=== PATIENT | female | born 1940 | race Two or more races ===

== ENCOUNTER 2022-07-10 14:18 | Inpatient (IN) | payer OTHER, MEDICAID ==
[~2022-07-10] VITALS: Ht 162.6 cm; Wt 87.1 kg
[2022-07-10 14:20] VITALS: BP_SYST 81
[2022-07-10 15:01] LABS: BASOPHILS % (AUTO) 0.7 % (0.0-2.0); EOSINOPHILS # (AUTO) 0.2 K/uL (0.0-0.4); EOSINOPHILS % (AUTO) 2.6 % (0.0-4.0); HEMATOCRIT 33.9 % (36-48); HEMOGLOBIN 11.1 g/dL (12.0-16.0); LYMPHOCYTES # (AUTO) 1.2 K/uL (1.0-5.5); LYMPHOCYTES % (AUTO) 19.1 % (20.5-51.5); MEAN CORPUSCULAR HEMOGLOBIN 32 pg (27-31); MEAN CORPUSCULAR HGB CONC 33 % (32-36); MEAN CORPUSCULAR VOLUME 99 fL (79.0-98.0); MONOCYTES # (AUTO) 0.6 K/uL (0.0-1.0); MONOCYTES % (AUTO) 9.6 % (1.7-9.3); NEUTROPHILS # (AUTO) 4.4 K/uL (1.8-7.7); PLATELET COUNT (AUTO) 183 K/uL (130-430); RED BLOOD CELL COUNT(AUTO) 3.43 MIL/uL (4.2-6.2); RED CELL DISTRIBUTION WIDTH 16.7 % (9.0-15.0); WHITE BLOOD COUNT (AUTO) 6.4 K/uL (4.8-10.8)
[2022-07-10 15:53] LABS: BILIRUBIN,URINE NEGATIVE (NEGATIVE); BLOOD, URINE 2+ (NEGATIVE); CLARITY/URINE CLOUDY (CLEAR); COLOR,URINE YELLOW (YELLOW); GLUCOSE,URINE NEGATIVE (NEGATIVE); KETONES,URINE TRACE (NEGATIVE); NITRITE, URINE NEGATIVE (NEGATIVE); PROTEIN URINE 2+ (NEGATIVE); UROBILINOGEN,URINE 0.2 (0.2-1.0)
[2022-07-10 16:00] LABS: LEUKOCYTE ESTERASE ,URINE 3+ (NEGATIVE)
[2022-07-10 16:02] LABS: BACTERIA,URINE MODERATE /HPF (None Seen); WBC,URINE >100 /HPF (0-3)
[2022-07-10 16:03] LABS: MUCUS,URINE None Seen /LPF (None Seen)
[2022-07-10] MEDS ORDERED: SULFAMETHOXAZOLE/TRIMETHOPR DS 1 TABLET PO ONE (16:15)
[2022-07-10 16:16] LABS: ANION GAP 7 (5-15); CALCIUM 8.5 mg/dL (8.4-11.0); CHLORIDE 97 mmol/L (98-107); CREATININE 4.86 mg/dL (0.55-1.30); GLUCOSE 73 mg/dL (70-99); UREA NITROGEN, BLOOD 35 mg/dL (8-21)
[2022-07-10 16:22] LABS: ALANINE AMINOTRANSFERASE 5 U/L (12-78); ALBUMIN 2.6 g/dL (3.4-4.8); ASPARTATE AMINOTRANSFERASE 13 U/L (10-37); PHOSPHORUS 3.1 mg/dL (2.7-4.5); TOTAL BILIRUBIN 0.4 mg/dL (0.0-1.0)
[2022-07-10] MEDS ORDERED: PIPERACILLIN/TAZOBACTAM 2.25 GM VIAL IV ONE (17:41)
[2022-07-10] MEDS ORDERED: NS 250 ML IV ONE (17:45)
[2022-07-10] MEDS ORDERED: DEXTROSE 50% JECT 50 ML DISP.SYRIN IVP ONE (17:45)
[2022-07-10] MEDS ORDERED: PIPERACILLIN/TAZOBACTAM 2.25 GM in NS 50 ML IV ONE (17:45)
[2022-07-10] MEDS ORDERED: ZOLPIDEM TARTRATE 5 MG TABLET PO PRN (18:15)
[2022-07-10] MEDS ORDERED: NALOXONE HCL 0.4 MG/ML AMP (NARCAN) IVP PRN ×2 (18:15)
[2022-07-10] MEDS ORDERED: POTASSIUM CHLORIDE 20 MEQ TAB.PRT.SR PO PRN (18:15)
[2022-07-10] MEDS ORDERED: MAGNESIUM SULFATE 50 ML IV PRN (18:15)
[2022-07-10] MEDS ORDERED: LORazepam 2 MG/ML VIAL IVP PRN (18:15)
[2022-07-10] MEDS ORDERED: ACETAMINOPHEN 325 MG TABLET PO PRN ×2 (18:15→18:30)
[2022-07-10] MEDS ORDERED: MORPHINE 2 MG/ML INJ. SYRINGE IVP PRN ×2 (18:15)
[2022-07-10] MEDS ORDERED: ONDANSETRON HCL 4 MG/2 ML VIAL IVP PRN (18:15)
[2022-07-10] MEDS ORDERED: DOCUSATE SODIUM 100 MG CAPSULE PO PRN (18:15)
[2022-07-10] MEDS ORDERED: MUPIROCIN 2% TOPICAL OINTMENT 22 GM NS PRN (18:15)
[2022-07-10] MEDS ORDERED: cefTRIAXone 1 GM IVPB PREMIX 50 ML IV ONE (21:08)
[2022-07-10 21:38] VITALS: BP_SYST 114
[2022-07-10] MEDS: cefTRIAXone 1 GM IVPB PREMIX 50 ML IV SCH (21:45)
[2022-07-10] MEDS: HEPARIN SODIUM,PORCINE 5,000 UNITS/ML VIAL SUBCUT SCH (21:55)
[2022-07-11 07:17] LABS: BASOPHILS % (AUTO) 0.5 % (0.0-2.0); EOSINOPHILS # (AUTO) 0.2 K/uL (0.0-0.4); EOSINOPHILS % (AUTO) 3.4 % (0.0-4.0); HEMATOCRIT 35.9 % (36-48); LYMPHOCYTES # (AUTO) 1.1 K/uL (1.0-5.5); LYMPHOCYTES % (AUTO) 18.1 % (20.5-51.5); MEAN CORPUSCULAR HEMOGLOBIN 33 pg (27-31); MEAN CORPUSCULAR HGB CONC 33 % (32-36); MEAN CORPUSCULAR VOLUME 99 fL (79.0-98.0); MONOCYTES # (AUTO) 0.5 K/uL (0.0-1.0); MONOCYTES % (AUTO) 8.9 % (1.7-9.3); NEUTROPHILS # (AUTO) 4.1 K/uL (1.8-7.7); NEUTROPHILS % (AUTO) 69.1 % (40.0-70.0); PLATELET COUNT (AUTO) 169 K/uL (130-430); RED BLOOD CELL COUNT(AUTO) 3.64 MIL/uL (4.2-6.2); RED CELL DISTRIBUTION WIDTH 16.7 % (9.0-15.0)
[2022-07-11 08:00] VITALS: BP_SYST 111
[2022-07-11 08:01] LABS: ANION GAP 8 (5-15); CALCIUM 8.3 mg/dL (8.4-11.0); CHLORIDE 95 mmol/L (98-107); CREATININE 5.39 mg/dL (0.55-1.30); GLUCOSE 121 mg/dL (70-99); UREA NITROGEN, BLOOD 40 mg/dL (8-21)
[2022-07-11] MEDS ORDERED: cefTRIAXone 1 GM in D5W 50 ML IV SCH (08:15)
[2022-07-11] MEDS ORDERED: ASPIRIN 81 MG TAB.CHEW PO ONE (10:00)
[2022-07-11] MEDS ORDERED: ATORVASTATIN 10 MG TABLET PO ONE (10:00)
[2022-07-11] MEDS ORDERED: CARVEDILOL 6.25 MG TABLET (COREG) PO ONE (10:00)
[2022-07-11] MEDS: HEPARIN SODIUM,PORCINE 5,000 UNITS/ML VIAL SUBCUT SCH ×2 (12:22→21:00)
[2022-07-11 14:48] VITALS: BP_SYST 142
[2022-07-11 17:41] VITALS: BP_SYST 105
[2022-07-11] MEDS ORDERED: PRAV20TA59 PO (18:51)
[2022-07-11] MEDS ORDERED: SITA25TA3 PO (18:51)
[2022-07-11] MEDS ORDERED: CARV12.548 PO (18:51)
[2022-07-11] MEDS ORDERED: INSU3INS8 SUBCUT (18:51)
[2022-07-11] MEDS: BALSAM PERU/CASTOR OIL 56.7 GM OINT...G. TP SCH (18:55)
[2022-07-11 20:00] VITALS: BP_SYST 127
[2022-07-11] MEDS ORDERED: INSULIN REGULAR, HUMAN 100 UNITS/ML, 3 ML VIAL SUBCUT SCH ×2 (21:00)
[2022-07-12 00:37] VITALS: BP_SYST 129
[2022-07-12] MEDS: CARVEDILOL 6.25 MG TABLET (COREG) PO SCH ×3 (00:37→22:39)
[2022-07-12] MEDS: cefTRIAXone 1 GM IVPB PREMIX 50 ML IV SCH ×2 (00:38→22:39)
[2022-07-12] MEDS: INSULIN REGULAR, HUMAN 100 UNITS/ML, 3 ML VIAL (humuLIN R) SUBCUT PRN ×5 (00:43→22:48)
[2022-07-12 08:00] VITALS: BP_SYST 106
[2022-07-12 08:16] LABS: BASOPHILS % (AUTO) 0.5 % (0.0-2.0); EOSINOPHILS # (AUTO) 0.1 K/uL (0.0-0.4); EOSINOPHILS % (AUTO) 1.9 % (0.0-4.0); HEMATOCRIT 34.6 % (36-48); HEMOGLOBIN 11.5 g/dL (12.0-16.0); LYMPHOCYTES # (AUTO) 1.1 K/uL (1.0-5.5); LYMPHOCYTES % (AUTO) 15.2 % (20.5-51.5); MEAN CORPUSCULAR HEMOGLOBIN 33 pg (27-31); MEAN CORPUSCULAR HGB CONC 33 % (32-36); MEAN CORPUSCULAR VOLUME 99 fL (79.0-98.0); MONOCYTES # (AUTO) 0.5 K/uL (0.0-1.0); MONOCYTES % (AUTO) 7.5 % (1.7-9.3); NEUTROPHILS # (AUTO) 5.2 K/uL (1.8-7.7); NEUTROPHILS % (AUTO) 74.9 % (40.0-70.0); PLATELET COUNT (AUTO) 158 K/uL (130-430); WHITE BLOOD COUNT (AUTO) 6.9 K/uL (4.8-10.8)
[2022-07-12 08:20] LABS: ALANINE AMINOTRANSFERASE 6 U/L (12-78); ALBUMIN 2.7 g/dL (3.4-4.8); ANION GAP 11 (5-15); ASPARTATE AMINOTRANSFERASE 14 U/L (10-37); CALCIUM 7.8 mg/dL (8.4-11.0); CHLORIDE 96 mmol/L (98-107); CHOLESTEROL 95 mg/dL (<200); CREATININE 6.19 mg/dL (0.55-1.30); GLUCOSE 201 mg/dL (70-99); HDL CHOLESTEROL 41 mg/dL (>55); LDL CHOLESTEROL 39 mg/dL (<100); THYROID STIMULATING HORMONE 2.48 uIu/mL (0.34-4.82); TOTAL BILIRUBIN 0.4 mg/dL (0.0-1.0); TRIGLYCERIDES 104 mg/dL (30-150); UREA NITROGEN, BLOOD 46 mg/dL (8-21)
[2022-07-12] MEDS ORDERED: SODIUM POLYSTYRENE SULFONATE 15 GM/60 ML UDBTL PO ONE (09:00)
[2022-07-12] MEDS ORDERED: FUROSEMIDE 40 MG/4 ML VIAL IVP ONE (09:00)
[2022-07-12] MEDS: HEPARIN SODIUM,PORCINE 5,000 UNITS/ML VIAL SUBCUT SCH ×2 (09:26→22:47)
[2022-07-12] MEDS: ASPIRIN 81 MG TAB.CHEW PO SCH (09:28)
[2022-07-12] MEDS: BALSAM PERU/CASTOR OIL 56.7 GM OINT...G. TP SCH (09:29)
[2022-07-12] MEDS: ATORVASTATIN 10 MG TABLET PO SCH (09:30)
[2022-07-12 11:00] LABS: INR 1.1 (0.8-1.2); PROTHROMBIN TIME 11.5 SECS (9.5-12.5)
[2022-07-12 16:00] VITALS: BP_SYST 115
[2022-07-12 20:00] VITALS: BP_SYST 124
[2022-07-13] VITALS: BP_SYST 118
[2022-07-13] MEDS: INSULIN REGULAR, HUMAN 100 UNITS/ML, 3 ML VIAL (humuLIN R) SUBCUT PRN ×4 (07:16→23:03)
[2022-07-13 08:00] VITALS: BP_SYST 126
[2022-07-13 08:08] LABS: ANION GAP 11 (5-15); CALCIUM 8.2 mg/dL (8.4-11.0); CHLORIDE 95 mmol/L (98-107); CREATININE 6.86 mg/dL (0.55-1.30); GLUCOSE 227 mg/dL (70-99); UREA NITROGEN, BLOOD 53 mg/dL (8-21)
[2022-07-13] MEDS: ATORVASTATIN 10 MG TABLET PO SCH (08:15)
[2022-07-13] MEDS: ASPIRIN 81 MG TAB.CHEW PO SCH (08:15)
[2022-07-13] MEDS: CARVEDILOL 6.25 MG TABLET (COREG) PO SCH ×2 (08:16→21:00)
[2022-07-13] MEDS: HEPARIN SODIUM,PORCINE 5,000 UNITS/ML VIAL SUBCUT SCH ×2 (08:17→22:59)
[2022-07-13 08:21] LABS: BASOPHILS % (AUTO) 0.6 % (0.0-2.0); EOSINOPHILS # (AUTO) 0.1 K/uL (0.0-0.4); EOSINOPHILS % (AUTO) 1.5 % (0.0-4.0); HEMOGLOBIN 10.8 g/dL (12.0-16.0); LYMPHOCYTES # (AUTO) 0.9 K/uL (1.0-5.5); LYMPHOCYTES % (AUTO) 14.4 % (20.5-51.5); MEAN CORPUSCULAR HEMOGLOBIN 33 pg (27-31); MEAN CORPUSCULAR HGB CONC 34 % (32-36); MEAN CORPUSCULAR VOLUME 98 fL (79.0-98.0); MONOCYTES # (AUTO) 0.5 K/uL (0.0-1.0); MONOCYTES % (AUTO) 7.6 % (1.7-9.3); NEUTROPHILS # (AUTO) 4.7 K/uL (1.8-7.7); NEUTROPHILS % (AUTO) 75.9 % (40.0-70.0); PLATELET COUNT (AUTO) 150 K/uL (130-430); RED BLOOD CELL COUNT(AUTO) 3.26 MIL/uL (4.2-6.2); RED CELL DISTRIBUTION WIDTH 16.4 % (9.0-15.0); WHITE BLOOD COUNT (AUTO) 6.2 K/uL (4.8-10.8)
[2022-07-13 11:46] VITALS: BP_SYST 100
[2022-07-13] MEDS ORDERED: FUROSEMIDE 40 MG/4 ML VIAL IVP ONE (13:45)
[2022-07-13] MEDS ORDERED: FUROSEMIDE 40 MG/4 ML VIAL ONE (14:10)
[2022-07-13 16:54] VITALS: BP_SYST 112
[2022-07-13] MEDS: BALSAM PERU/CASTOR OIL 56.7 GM OINT...G. TP SCH (17:42)
[2022-07-13] MEDS: cefTRIAXone 1 GM IVPB PREMIX 50 ML IV SCH ×2 (21:00→22:58)
[2022-07-13 22:00] VITALS: BP_SYST 106
[2022-07-14] VITALS: BP_SYST 126
[2022-07-14] MEDS: INSULIN REGULAR, HUMAN 100 UNITS/ML, 3 ML VIAL (humuLIN R) SUBCUT PRN ×4 (06:40→21:26)
[2022-07-14 08:05] VITALS: BP_SYST 139
[2022-07-14] MEDS: ASPIRIN 81 MG TAB.CHEW PO SCH (08:59)
[2022-07-14] MEDS: ATORVASTATIN 10 MG TABLET PO SCH (08:59)
[2022-07-14] MEDS: HEPARIN SODIUM,PORCINE 5,000 UNITS/ML VIAL SUBCUT SCH ×2 (09:01→21:24)
[2022-07-14] MEDS: BALSAM PERU/CASTOR OIL 56.7 GM OINT...G. TP SCH (09:07)
[2022-07-14] MEDS: CARVEDILOL 6.25 MG TABLET (COREG) PO SCH ×2 (09:07→21:21)
[2022-07-14] MEDS ORDERED: LINEZOLID 600 MG TABLET PO ONE (10:30)
[2022-07-14 13:00] VITALS: BP_SYST 131
[2022-07-14 16:59] VITALS: BP_SYST 104
[2022-07-14 20:00] VITALS: BP_SYST 141
[2022-07-14] MEDS: LINEZOLID 600 MG TABLET PO SCH (21:27)
[2022-07-15 00:25] VITALS: BP_SYST 133
[2022-07-15 07:00] LABS: BASOPHILS % (AUTO) 0.6 % (0.0-2.0); EOSINOPHILS # (AUTO) 0.2 K/uL (0.0-0.4); EOSINOPHILS % (AUTO) 3.2 % (0.0-4.0); HEMATOCRIT 33.9 % (36-48); HEMOGLOBIN 11.3 g/dL (12.0-16.0); MEAN CORPUSCULAR HEMOGLOBIN 33 pg (27-31); MEAN CORPUSCULAR HGB CONC 33 % (32-36); MEAN CORPUSCULAR VOLUME 99 fL (79.0-98.0); MONOCYTES # (AUTO) 0.3 K/uL (0.0-1.0); MONOCYTES % (AUTO) 7.1 % (1.7-9.3); NEUTROPHILS # (AUTO) 3.4 K/uL (1.8-7.7); NEUTROPHILS % (AUTO) 69.1 % (40.0-70.0); PLATELET COUNT (AUTO) 168 K/uL (130-430); RED BLOOD CELL COUNT(AUTO) 3.42 MIL/uL (4.2-6.2); RED CELL DISTRIBUTION WIDTH 16.2 % (9.0-15.0); WHITE BLOOD COUNT (AUTO) 4.9 K/uL (4.8-10.8)
[2022-07-15 07:17] LABS: INR 1.1 (0.8-1.2); PROTHROMBIN TIME 11.3 SECS (9.5-12.5)
[2022-07-15 07:29] LABS: ALANINE AMINOTRANSFERASE 5 U/L (12-78); ALBUMIN 2.7 g/dL (3.4-4.8); ANION GAP 15 (5-15); ASPARTATE AMINOTRANSFERASE 15 U/L (10-37); CALCIUM 8.8 mg/dL (8.4-11.0); CHLORIDE 92 mmol/L (98-107); GLUCOSE 164 mg/dL (70-99); TOTAL BILIRUBIN 0.6 mg/dL (0.0-1.0); UREA NITROGEN, BLOOD 68 mg/dL (8-21)
[2022-07-15 07:45] LABS: CREATININE 7.57 mg/dL (0.55-1.30)
[2022-07-15 08:00] VITALS: BP_SYST 135
[2022-07-15] MEDS: ASPIRIN 81 MG TAB.CHEW PO SCH (09:00)
[2022-07-15] MEDS: LINEZOLID 600 MG TABLET PO SCH ×2 (09:00→23:31)
[2022-07-15] MEDS: ATORVASTATIN 10 MG TABLET PO SCH (09:00)
[2022-07-15] MEDS: CARVEDILOL 6.25 MG TABLET (COREG) PO SCH ×2 (09:00→21:00)
[2022-07-15] MEDS: HEPARIN SODIUM,PORCINE 5,000 UNITS/ML VIAL SUBCUT SCH ×2 (09:00→21:00)
[2022-07-15 11:41] VITALS: BP_SYST 137
[2022-07-15] MEDS: BALSAM PERU/CASTOR OIL 56.7 GM OINT...G. TP SCH (12:11)
[2022-07-15 17:30] VITALS: BP_SYST 131
[2022-07-15] MEDS: INSULIN REGULAR, HUMAN 100 UNITS/ML, 3 ML VIAL (humuLIN R) SUBCUT PRN ×2 (18:22→23:34)
[2022-07-15 20:00] VITALS: BP_SYST 102
[2022-07-16] VITALS: BP_SYST 114
[2022-07-16] MEDS: INSULIN REGULAR, HUMAN 100 UNITS/ML, 3 ML VIAL (humuLIN R) SUBCUT PRN ×2 (06:17→11:44)
[2022-07-16 08:07] LABS: ANION GAP 9 (5-15); CALCIUM 7.9 mg/dL (8.4-11.0); CHLORIDE 101 mmol/L (98-107); CREATININE 4.49 mg/dL (0.55-1.30); GLUCOSE 196 mg/dL (70-99); UREA NITROGEN, BLOOD 31 mg/dL (8-21)
[2022-07-16 08:26] VITALS: BP_SYST 137
[2022-07-16] MEDS: BALSAM PERU/CASTOR OIL 56.7 GM OINT...G. TP SCH (09:00)
[2022-07-16] MEDS: HEPARIN SODIUM,PORCINE 5,000 UNITS/ML VIAL SUBCUT SCH (09:00)
[2022-07-16] MEDS ORDERED: LINE600T12 PO (10:24)
[2022-07-16 11:41] VITALS: BP_SYST 110
[2022-07-16] MEDS: CARVEDILOL 6.25 MG TABLET (COREG) PO SCH (11:52)
[2022-07-16] MEDS: LINEZOLID 600 MG TABLET PO SCH (11:52)
[2022-07-16] MEDS: ASPIRIN 81 MG TAB.CHEW PO SCH (11:52)
[2022-07-16] MEDS: ATORVASTATIN 10 MG TABLET PO SCH (11:53)
[2022-07-16 13:46] VITALS: BP_SYST 101
[2022-07-16 16:44] VITALS: BP_SYST 102
== END 2022-07-16 15:10 | disposition home or self-care (01) | DRG 314 ==
LOC: SED 14:18 → STU 17:56 → SMU 07-11 15:47
PROVIDERS: ADMIT General Practice; ATTEND General Practice
PROC: 06JYXZZ Inspection of Lower Vein, External Approach (ICD-10-PCS; principal; 2022-07-11)
PROC: 5A1D70Z Performance of Urinary Filtration, Intermittent, Less than 6 Hours Per Day (ICD-10-PCS; 2022-07-11)
PROC: 5A1D70Z Performance of Urinary Filtration, Intermittent, Less than 6 Hours Per Day (ICD-10-PCS; 2022-07-15)
DX: T82.818A Embolism due to vascular prosthetic devices, implants and grafts, initial encounter (principal); A41.9 Sepsis, unspecified organism; N17.0 Acute kidney failure with tubular necrosis; N18.6 End stage renal disease; J18.9 Pneumonia, unspecified organism; N39.0 Urinary tract infection, site not specified; E44.0 Moderate protein-calorie malnutrition; E87.20 Acidosis, unspecified; J81.1 Chronic pulmonary edema; I82.C13 Acute embolism and thrombosis of internal jugular vein, bilateral; I82.413 Acute embolism and thrombosis of femoral vein, bilateral; I12.0 Hypertensive chronic kidney disease with stage 5 chronic kidney disease or end stage renal disease; Z16.21 Resistance to vancomycin; D63.8 Anemia in other chronic diseases classified elsewhere; E11.621 Type 2 diabetes mellitus with foot ulcer; I25.10 Atherosclerotic heart disease of native coronary artery without angina pectoris; L97.529 Non-pressure chronic ulcer of other part of left foot with unspecified severity; Y83.2 Surgical operation with anastomosis, bypass or graft as the cause of abnormal reaction of the patient, or of later complication, without mention of misadventure at the time of the procedure; Z20.822 Contact with and (suspected) exposure to COVID-19; E11.319 Type 2 diabetes mellitus with unspecified diabetic retinopathy without macular edema; E11.22 Type 2 diabetes mellitus with diabetic chronic kidney disease; Z99.2 Dependence on renal dialysis; Z87.891 Personal history of nicotine dependence; Z87.440 Personal history of urinary (tract) infections; Z79.4 Long term (current) use of insulin; Y92.89 Other specified places as the place of occurrence of the external cause; Z68.33 Body mass index [BMI] 33.0-33.9, adult; B95.2 Enterococcus as the cause of diseases classified elsewhere
CPT/HCPCS: 36415; 71045; 80048; 80053; 80061; 81000; 82962; 83036; 83605; 83735; 83880; 84100; 84443; 84484; 85025; 85610-TC; 87040; 87086; 87186-TC; 93005; 93306; 93923; 96365; 96375; 99291; A6209; G0378; J0696; J1644; J1940; J2543

== ENCOUNTER 2022-09-03 18:32 | Emergency (ER) | payer OTHER, MEDICAID ==
[~2022-09-03] VITALS: Ht 162.6 cm; Wt 77.1 kg
[~2022-09-03 18:32] MED LIST: CARV12.548 PO; INSU3INS8 SUBCUT; LINE600T12 PO; PRAV20TA59 PO; SITA25TA3 PO
[2022-09-03 18:39] VITALS: BP_SYST 113
[2022-09-03 20:02] LABS: BASOPHILS # (AUTO) 0.1 K/uL (0.0-0.2); EOSINOPHILS # (AUTO) 0.1 K/uL (0.0-0.4); EOSINOPHILS % (AUTO) 1.2 % (0.0-4.0); HEMATOCRIT 30.3 % (36-48); HEMOGLOBIN 9.8 g/dL (12.0-16.0); LYMPHOCYTES # (AUTO) 0.7 K/uL (1.0-5.5); LYMPHOCYTES % (AUTO) 5.5 % (20.5-51.5); MEAN CORPUSCULAR HEMOGLOBIN 33 pg (27-31); MEAN CORPUSCULAR HGB CONC 33 % (32-36); MEAN CORPUSCULAR VOLUME 102 fL (79.0-98.0); MONOCYTES # (AUTO) 0.8 K/uL (0.0-1.0); MONOCYTES % (AUTO) 6.2 % (1.7-9.3); NEUTROPHILS # (AUTO) 10.4 K/uL (1.8-7.7); NEUTROPHILS % (AUTO) 86.1 % (40.0-70.0); PLATELET COUNT (AUTO) 198 K/uL (130-430); RED BLOOD CELL COUNT(AUTO) 2.96 MIL/uL (4.2-6.2); RED CELL DISTRIBUTION WIDTH 19.3 % (9.0-15.0); WHITE BLOOD COUNT (AUTO) 12.1 K/uL (4.8-10.8)
[2022-09-03] MEDS ORDERED: HYDROcodone/ACETAMIN 5-325 MG TAB (NORCO/ VICODIN) PO ONE (20:15)
[2022-09-03 20:16] LABS: ANION GAP 8 (5-15); CALCIUM 8.6 mg/dL (8.4-11.0); CHLORIDE 98 mmol/L (98-107); CREATININE 4.02 mg/dL (0.55-1.30); GLUCOSE 372 mg/dL (70-99); UREA NITROGEN, BLOOD 28 mg/dL (8-21)
[2022-09-03 20:21] LABS: ALANINE AMINOTRANSFERASE 14 U/L (12-78); ALBUMIN 2.1 g/dL (3.4-4.8); ASPARTATE AMINOTRANSFERASE 23 U/L (10-37); TOTAL BILIRUBIN 0.5 mg/dL (0.0-1.0)
[2022-09-03 23:40] VITALS: BP_SYST 128
== END 2022-09-03 23:40 ==
LOC: SED 18:32
DX: S09.90XA Unspecified injury of head, initial encounter (principal); E11.9 Type 2 diabetes mellitus without complications; I11.0 Hypertensive heart disease with heart failure; I50.9 Heart failure, unspecified; Z79.899 Other long term (current) drug therapy; W01.198A Fall on same level from slipping, tripping and stumbling with subsequent striking against other object, initial encounter; Y93.89 Activity, other specified; Y92.89 Other specified places as the place of occurrence of the external cause; Y99.8 Other external cause status
CPT/HCPCS: 36415; 70450-TC; 76376; 80053; 85025; 99284

== ENCOUNTER 2022-09-08 09:03 | Inpatient (IN) | payer OTHER, MEDICAID ==
[~2022-09-08] VITALS: Ht 160 cm; Wt 84.8 kg
[2022-09-08 09:06] VITALS: BP_SYST 123
--- NOTE | 2022-09-08 09:10 | NUR ---
Placed in room 7 . Placed on media monitor, blood pressure machine and pulse oximeter. To gown for exam. Side rails up.
--- NOTE | 2022-09-08 09:12 | NUR ---
Pt bib EMS from [facility] for assessment. Per EMS pt is refusing dialysis today and ALOC. Pt presents lethargic and but oriented x3. Pt face is bruised, was seen here 5 days ago for fall and full work up done. Pt was discharge back to SNF. Dr. Mak at bedside assessing patient. V/S stable.
--- NOTE | 2022-09-08 09:17 | NUR ---
ER Dr. Mka at bedside examining patient.
[2022-09-08] MEDS ORDERED: ACETAMINOPHEN 500 MG TABLET PO ONE (10:30)
[2022-09-08] MEDS ORDERED: LORazepam 2 MG/ML VIAL ONE (11:00)
[2022-09-08 11:02] LABS: CLARITY/URINE CLOUDY (CLEAR); COLOR,URINE YELLOW (YELLOW); PH,URINE 6.5 (5.0-8.0)
[2022-09-08 11:03] LABS: BILIRUBIN,URINE NEGATIVE (NEGATIVE); BLOOD, URINE 2+ (NEGATIVE); GLUCOSE,URINE NEGATIVE (NEGATIVE); KETONES,URINE NEGATIVE (NEGATIVE); LEUKOCYTE ESTERASE ,URINE 3+ (NEGATIVE); NITRITE, URINE NEGATIVE (NEGATIVE); PROTEIN URINE 2+ (NEGATIVE); UROBILINOGEN,URINE 0.2 (0.2-1.0)
[2022-09-08 11:04] LABS: BACTERIA,URINE MODERATE /HPF (None Seen); MUCUS,URINE 1+ /LPF (None Seen); WBC,URINE >100 /HPF (0-3)
[2022-09-08 11:07] LABS: BASOPHILS # (AUTO) 0.1 K/uL (0.0-0.2); BASOPHILS % (AUTO) 0.6 % (0.0-2.0); EOSINOPHILS # (AUTO) 0.1 K/uL (0.0-0.4); EOSINOPHILS % (AUTO) 0.5 % (0.0-4.0); HEMATOCRIT 30.1 % (36-48); HEMOGLOBIN 9.9 g/dL (12.0-16.0); LYMPHOCYTES # (AUTO) 0.6 K/uL (1.0-5.5); LYMPHOCYTES % (AUTO) 5.4 % (20.5-51.5); MEAN CORPUSCULAR HEMOGLOBIN 32 pg (27-31); MEAN CORPUSCULAR HGB CONC 33 % (32-36); MEAN CORPUSCULAR VOLUME 97 fL (79.0-98.0); MONOCYTES # (AUTO) 0.4 K/uL (0.0-1.0); MONOCYTES % (AUTO) 3.8 % (1.7-9.3); NEUTROPHILS # (AUTO) 10.6 K/uL (1.8-7.7); NEUTROPHILS % (AUTO) 89.7 % (40.0-70.0); PLATELET COUNT (AUTO) 185 K/uL (130-430); RED BLOOD CELL COUNT(AUTO) 3.09 MIL/uL (4.2-6.2); RED CELL DISTRIBUTION WIDTH 18.4 % (9.0-15.0); WHITE BLOOD COUNT (AUTO) 11.8 K/uL (4.8-10.8)
[2022-09-08] MEDS ORDERED: LORazepam 2 MG/ML VIAL IVP ONE (11:15)
--- NOTE | 2022-09-08 11:25 | NUR ---
# 20 gauge angiocath placed to LEJ by Dr. Mak. Use of asceptic technique. Opsite placed over site. Blood return noted. Flushed with 10 cc of normal saline. No evidence of infiltration noted. Patient tolerated well.
[2022-09-08] MEDS ORDERED: cefTRIAXone 1 GM IVPB PREMIX 50 ML IV ONE (11:30)
[2022-09-08 11:33] LABS: INR 1.4 (0.8-1.2); PROTHROMBIN TIME 14.1 SECS (9.5-12.5)
[2022-09-08 11:34] LABS: BARBITURATE, URINE NEGATIVE (NEG <=200); BENZODIAZEPINE, URINE NEGATIVE (NEG <=150); CANNABINOID, URINE NEGATIVE (NEG <=50); COCAINE, URINE NEGATIVE (NEG <=150); METHAMPHETAMINES SCREEN,URINE NEGATIVE (NEG <=500); OPIATE, URINE POSITIVE (NEG <=100); PHENCYCLIDINE SCREEN,URINE NEGATIVE (NEG <=25); UR TRICYCLIC ANTIDEPRESSANTS NEGATIVE (NEG <=300); URINE AMPHETAMINE NEGATIVE (NEG <=500); URINE METHADONE NEGATIVE (NEG <=200); URINE OXYCODONE SCREEN NEGATIVE (NEG <=100); URINE PROPOXYPHENE SCREEN NEGATIVE (NEG <=300)
[2022-09-08 11:36] LABS: ANION GAP 15 (5-15); CALCIUM 8.8 mg/dL (8.4-11.0); CHLORIDE 97 mmol/L (98-107); CREATININE 6.92 mg/dL (0.55-1.30); GLUCOSE 132 mg/dL (70-99); UREA NITROGEN, BLOOD 51 mg/dL (8-21)
[2022-09-08 11:45] LABS: ALANINE AMINOTRANSFERASE 13 U/L (12-78); ALBUMIN 2.4 g/dL (3.4-4.8); ASPARTATE AMINOTRANSFERASE 15 U/L (10-37); TOTAL BILIRUBIN 0.8 mg/dL (0.0-1.0)
[2022-09-08 11:47] LABS: ACETAMINOPHEN < 1 ug/mL (1-30); ALCOHOL, BLOOD < 3 mg/dL (<10)
--- NOTE | 2022-09-08 11:56 | NUR ---
Admit bed requested Patient will be admitted to care of Dr. PARKINSON. Admitted to TELEMETRY unit. Diagnosis METABOLIC ENCEPHALOPATHY Inpatient (Yes or No) YES Observation (Yes or No) NO Orientation concerns or request close to nursing station (Yes or No) NO Covid Status NEGATIVE On vent or bipap NO Isolation requirements NO Needs a sitter NO From Home (Yes or if No enter name of facility) NO, [facility] Requires Dialysis (Yes or No) YES Med Rec Completed (Yes of No) YES
[2022-09-08 11:59] LABS: C-REACTIVE PROTEIN QUANT 22.4 mg/dL (0-0.5)
[2022-09-08] MEDS ORDERED: LINEZOLID 300 ML IV SCH ×2 (12:00→21:00)
[2022-09-08] MEDS ORDERED: LINEZOLID 300 ML IV ONE (12:02)
[2022-09-08 12:57] LABS: ACETONE, SERUM NEGATIVE (NEGATIVE)
--- NOTE | 2022-09-08 14:00 | NUR ---
board certified family physician at bedside for hemodialysis.
[2022-09-08] MEDS ORDERED: ACETAMINOPHEN 325 MG TABLET PO PRN (15:00)
[2022-09-08] MEDS: D5/0.45 NS 1,000 ML IV SCH (17:00)
--- NOTE | 2022-09-08 17:30 | NUR ---
Accucheck 39mg/dL, as per hypoglycemic protocol, D50 administered, will re-check blood sugar.
[2022-09-08] MEDS ORDERED: DEXTROSE 50% JECT 50 ML DISP.SYRIN ONE (17:52)
[2022-09-08] MEDS ORDERED: DEXTROSE 50% JECT 50 ML DISP.SYRIN IVP ONE (18:00)
--- NOTE | 2022-09-08 18:00 | NUR ---
Blood sugar re-check 126mg/dL, Pt is NPO, D51/2NS started at 50cc/hr for maintenance fluid.
--- NOTE | 2022-09-08 18:54 | NUR ---
Patient will be admitted to care of Dr. Gray. Admitted to Tele unit. Will go to room 132A. Belongings list completed. Complete and up to date summary report printed. SBAR report to be given at bedside with opportunity for questions.
--- NOTE | 2022-09-08 18:55 | NUR ---
Patient transferred to unit in stable condition.
[2022-09-08 20:00] VITALS: BP_SYST 133
[2022-09-08] MEDS: CARVEDILOL 12.5 MG TABLET (COREG) PO SCH (21:17)
[2022-09-08] MEDS: LINEZOLID 300 ML IV SCH (21:29)
[2022-09-09] VITALS (8 sets, daily range): BP systolic 92–133
--- NOTE | 2022-09-09 01:53 | NUR ---
CONSULTATION CALLED FOR DR DIAZ FOR CONSULT OF RENAL FAILURE ORDER BY DR. PARKINSON SPOKE WITH JENSEN
[2022-09-09 06:06] LABS: BASOPHILS % (AUTO) 0.3 % (0.0-2.0); EOSINOPHILS % (AUTO) 0.2 % (0.0-4.0); HEMATOCRIT 28.5 % (36-48); HEMOGLOBIN 9.3 g/dL (12.0-16.0); LYMPHOCYTES # (AUTO) 0.6 K/uL (1.0-5.5); MEAN CORPUSCULAR HEMOGLOBIN 32 pg (27-31); MEAN CORPUSCULAR HGB CONC 33 % (32-36); MEAN CORPUSCULAR VOLUME 98 fL (79.0-98.0); MONOCYTES # (AUTO) 0.9 K/uL (0.0-1.0); NEUTROPHILS # (AUTO) 9.7 K/uL (1.8-7.7); NEUTROPHILS % (AUTO) 86.5 % (40.0-70.0); PLATELET COUNT (AUTO) 197 K/uL (130-430); RED BLOOD CELL COUNT(AUTO) 2.91 MIL/uL (4.2-6.2); RED CELL DISTRIBUTION WIDTH 18.4 % (9.0-15.0); WHITE BLOOD COUNT (AUTO) 11.2 K/uL (4.8-10.8)
[2022-09-09 06:33] LABS: ANION GAP 16 (5-15); CALCIUM 8.4 mg/dL (8.4-11.0); CHLORIDE 97 mmol/L (98-107); CREATININE 5.34 mg/dL (0.55-1.30); GLUCOSE 170 mg/dL (70-99); PHOSPHORUS 4.5 mg/dL (2.7-4.5); UREA NITROGEN, BLOOD 31 mg/dL (8-21)
[2022-09-09] MEDS: ATORVASTATIN 10 MG TABLET PO SCH (08:50)
[2022-09-09] MEDS: CARVEDILOL 12.5 MG TABLET (COREG) PO SCH ×2 (08:51→20:26)
[2022-09-09] MEDS: D5/0.45 NS 1,000 ML IV SCH (09:24)
[2022-09-09] MEDS: LINEZOLID 300 ML IV SCH ×2 (09:29→20:27)
[2022-09-09] MEDS ORDERED: POTASSIUM CHLORIDE 20 MEQ/PKT PACKET PO ONE (14:00)
[2022-09-09] MEDS: ACETAMINOPHEN 500 MG TABLET PO PRN ×2 (14:45→20:15)
[2022-09-09] MEDS: INSULIN REGULAR, HUMAN 100 UNITS/ML, 3 ML VIAL (humuLIN R) SUBCUT PRN ×2 (17:15→20:23)
--- NOTE | 2022-09-09 19:30 | NUR ---
OPENING NOTE PT LYING BED. NO ACUTE S/S OF DISTRESS. COMPLAINED ABOUT HER HIP PAIN 10/10. GIVEN 500MG ACETAMINOPHEN. BREATHING EVEN AND NONLABORED. REPOSITION FOR COMFORT. SAFETY CHECKS IN PLACE. BED ALARM ON. CALL LIGHT IN REACH.
[2022-09-09] MEDS: QUEtiapine FUMARATE 25 MG TABLET PO SCH (20:15)
--- NOTE | 2022-09-09 20:30 | NUR ---
ROUNDING NOTE PT HAD LOOSE BOWEL MOVEMENT ON HER BRIEF. PERINEAL CARE GIVEN. PT TOLERATED DURING CHANGING HER POSITION. SKIN BARRIER CREAM APPLIED ON BUTTOCKS AND PERINEAL AREA. SAFETY CHECKS IN PLACE. CALL LIGHT IN REACH
[2022-09-10] VITALS (7 sets, daily range): BP systolic 95–116
[2022-09-10] MEDS: D5/0.45 NS 1,000 ML IV SCH (05:06)
[2022-09-10 05:56] LABS: BASOPHILS % (AUTO) 0.4 % (0.0-2.0); EOSINOPHILS # (AUTO) 0.2 K/uL (0.0-0.4); EOSINOPHILS % (AUTO) 2.3 % (0.0-4.0); HEMATOCRIT 28.3 % (36-48); HEMOGLOBIN 9.3 g/dL (12.0-16.0); LYMPHOCYTES # (AUTO) 0.4 K/uL (1.0-5.5); LYMPHOCYTES % (AUTO) 4.7 % (20.5-51.5); MEAN CORPUSCULAR HEMOGLOBIN 32 pg (27-31); MEAN CORPUSCULAR HGB CONC 33 % (32-36); MEAN CORPUSCULAR VOLUME 98 fL (79.0-98.0); MONOCYTES # (AUTO) 0.6 K/uL (0.0-1.0); MONOCYTES % (AUTO) 6.5 % (1.7-9.3); NEUTROPHILS % (AUTO) 86.1 % (40.0-70.0); PLATELET COUNT (AUTO) 211 K/uL (130-430); RED CELL DISTRIBUTION WIDTH 18.6 % (9.0-15.0); WHITE BLOOD COUNT (AUTO) 9.2 K/uL (4.8-10.8)
[2022-09-10 06:07] LABS: ANION GAP 12 (5-15); CALCIUM 7.6 mg/dL (8.4-11.0); CHLORIDE 95 mmol/L (98-107); CREATININE 6.56 mg/dL (0.55-1.30); GLUCOSE 253 mg/dL (70-99); UREA NITROGEN, BLOOD 41 mg/dL (8-21)
[2022-09-10] MEDS: INSULIN REGULAR, HUMAN 100 UNITS/ML, 3 ML VIAL (humuLIN R) SUBCUT PRN ×4 (06:11→21:38)
--- NOTE | 2022-09-10 06:39 | NUR ---
CLOSING NOTE PT LYING IN BED. BREATHING EVEN AND NONLABORED. NO S/S ACUTE DISTRESS OR PAIN. SAFETY CHECKS IN PLACE. BED LOWEST POSITION AND ALARM ON. CALL LIGHT IN REACH.
[2022-09-10] MEDS: ACETAMINOPHEN 500 MG TABLET PO PRN (08:38)
[2022-09-10] MEDS: CARVEDILOL 12.5 MG TABLET (COREG) PO SCH ×2 (08:39→20:11)
[2022-09-10] MEDS: LINEZOLID 300 ML IV SCH ×2 (08:39→20:11)
[2022-09-10] MEDS: ATORVASTATIN 10 MG TABLET PO SCH (08:40)
[2022-09-10] MEDS ORDERED: ALBUMIN HUMAN 25% 200 ML IV ONE ×2 (10:15)
[2022-09-10] MEDS: traMADol HCL HCL 50 MG TABLET (ULTRAM) PO PRN (12:59)
[2022-09-10] MEDS ORDERED: POTASSIUM CHLORIDE 20 MEQ/PKT PACKET PO ONE (15:00)
--- NOTE | 2022-09-10 15:27 | NUR ---
Dietitian Recommendations * If BUN and Creatinine levels are stable, consider CCHO diet instead * Ordered: Jose GARCIA Submitted for Cathy Zaragoza by Sonja Schwartz, MPH, RD Please see Nutrition Assessment for further details Addendum: 09/10/22 at [address] Amended: Links added.
[2022-09-10] MEDS: EPOETIN ALFA 10,000 UNITS/ML VIAL SUBCUT SCH (16:57)
[2022-09-10] MEDS: QUEtiapine FUMARATE 25 MG TABLET PO SCH (20:10)
[2022-09-11 00:41] VITALS: BP_SYST 111
[2022-09-11] MEDS: ACETAMINOPHEN 500 MG TABLET PO PRN ×3 (05:06→21:16)
[2022-09-11] MEDS: INSULIN REGULAR, HUMAN 100 UNITS/ML, 3 ML VIAL (humuLIN R) SUBCUT PRN ×4 (06:18→21:34)
[2022-09-11 07:41] VITALS: BP_SYST 111
[2022-09-11 07:55] LABS: ANION GAP 13 (5-15); CALCIUM 8.2 mg/dL (8.4-11.0); CHLORIDE 99 mmol/L (98-107); CREATININE 5.03 mg/dL (0.55-1.30); GLUCOSE 232 mg/dL (70-99); UREA NITROGEN, BLOOD 27 mg/dL (8-21)
[2022-09-11] MEDS: ATORVASTATIN 10 MG TABLET PO SCH (09:55)
[2022-09-11] MEDS: D5/0.45 NS 1,000 ML IV SCH (09:55)
[2022-09-11] MEDS: LINEZOLID 300 ML IV SCH ×2 (09:55→21:15)
[2022-09-11] MEDS: CARVEDILOL 12.5 MG TABLET (COREG) PO SCH ×2 (09:55→21:00)
[2022-09-11 12:04] VITALS: BP_SYST 104
[2022-09-11] MEDS: traMADol HCL HCL 50 MG TABLET (ULTRAM) PO PRN (12:36)
--- NOTE | 2022-09-11 15:55 | NUR ---
phone call to Ermelinda at [facility] [phone] . [facility] . Ermelinda will call back with bed availability
--- NOTE | 2022-09-11 16:29 | NUR ---
Patient to be discharged back to [facility] room 111. [facility] . ETA olive picker 20:[address]. will place packet on unit. GEMINI to notify ABDIFATAH.
[2022-09-11 16:56] VITALS: BP_SYST 110
--- NOTE | 2022-09-11 18:34 | NUR ---
I spoke with the daughter João to inform her that her mother was being transferred back to her prior facility [facility]. She addressed the concern of her mother not being able to sit in a W/C for transport to her HD center. PT spoke with me today to see the pt but no notes are present. I have then spoken with Ermelinda from [facility] and she informed me that if the pt can not sit in the W/C for her usual transport to HD then they would have to go through her insurance to arrange for gurney but would not be able to completed until Thursday which would cause her to miss on tomorrow if she was transferred back to the facility [facility]. I have spoken with Dr. Fabian and informed him of the situation and he requested to place note of why she can not be [facility]. supervisor paper machine, Anamaria, has been made aware and will arrange for DC after HD tomorrow.
--- NOTE | 2022-09-11 19:31 | NUR ---
Dr. Garcia at [facility] and has been updated with plan of care. He stated he will have her dialyzed tomorrow. He was also informed of the pt's glucose levels. Order received to stop
[2022-09-11 20:00] VITALS: BP_SYST 91
[2022-09-11] MEDS ORDERED: POTASSIUM CHLORIDE 20 MEQ/PKT PACKET PO ONE (20:00)
[2022-09-11] MEDS: QUEtiapine FUMARATE 25 MG TABLET PO SCH (21:20)
[2022-09-12 01:07] VITALS: BP_SYST 105
--- NOTE | 2022-09-12 04:15 | NUR ---
TELE BOX INFORMED RN THAT LEADS ARE OFF
--- NOTE | 2022-09-12 04:30 | NUR ---
TELE BOX CALLED [facility] AND INFORM UNIT SEC TO REMIND RN THAT LEADS ARE STILL OFF
--- NOTE | 2022-09-12 05:30 | NUR ---
TELE BOX INFORMED RN AGAIN THAT MONITOR IS STILL OFF
[2022-09-12] MEDS: INSULIN REGULAR, HUMAN 100 UNITS/ML, 3 ML VIAL (humuLIN R) SUBCUT PRN ×3 (06:29→21:15)
--- NOTE | 2022-09-12 07:40 | NUR ---
OPENING NOTE Received report from ABDIFATAH Ramirez. Upon entering room, patient is in bed, awake and oriented x3. Patient states hip pain at this time. EJ site intact and saline locked. Call light within reach. Safety precautions observed.
--- NOTE | 2022-09-12 07:51 | NUR ---
PHYSICAL THERAPY CO-SIGN The Physical Therapy Progress Notes documented by Quality Control Projectionist have been reviewed. Reviewed/Co-Signed by: Jose Pierce Documentation Done by:MIREYA WILKERSON Addendum: 09/12/22 at 0751 by Jose Pierce PT Amended: Links added.
[2022-09-12 08:00] VITALS: BP_SYST 114
[2022-09-12 08:41] LABS: ANION GAP 15 (5-15); CALCIUM 8.7 mg/dL (8.4-11.0); CHLORIDE 95 mmol/L (98-107); CREATININE 5.94 mg/dL (0.55-1.30); GLUCOSE 325 mg/dL (70-99); UREA NITROGEN, BLOOD 41 mg/dL (8-21)
[2022-09-12] MEDS: CARVEDILOL 12.5 MG TABLET (COREG) PO SCH ×2 (09:00→21:00)
[2022-09-12] MEDS ORDERED: ALBUMIN HUMAN 25% 100 ML IV ONE (10:00)
[2022-09-12] MEDS: ATORVASTATIN 10 MG TABLET PO SCH (10:17)
[2022-09-12] MEDS: ACETAMINOPHEN 500 MG TABLET PO PRN (10:21)
[2022-09-12] MEDS: LINEZOLID 300 ML IV SCH ×2 (10:22→21:00)
--- NOTE | 2022-09-12 11:30 | NUR ---
DIALYSIS Dialysis completed. 2L removed per counseling services director.
[2022-09-12 11:35] VITALS: BP_SYST 129
--- NOTE | 2022-09-12 12:13 | NUR ---
WOUND EVALUATION: Wound Consult received from Dr. Fabian. Thank you, Dr. Fabian, for the consult. Patient received in a [place] Bed with a mattress, awake, alert, and oriented. Patient is unable to turn independently. Dick Score is a 13. Past Medical History: Hypertension, Diabetes Mellitus, End-Stage Renal Failure, on Hemodialysis, old stroke. Patient presented to the Emergency Room with ALOC. Initial workup significant for Acute Metabolic Encephalopathy, and soft tissue trauma to the face. 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 Recent Labs: WBC 9.2, RBC 2.90, hemoglobin 9.3, hematocrit 28.3, sodium 131, chloride 95, BUN 41, creatinine 5.94, glucose 325, albumin 2.4. Microbiology: Blood culture results in progress. MRSA screen results negative. Urine culture results positive for beta-hemolytic Streptococcus. Intrinsic factors that delay wound healing: Diabetes Mellitus, End-Stage Renal Failure, Acute Metabolic Encephalopathy, Hypoalbuminemia, Hyperglycemia. Extrinsic factors that delay wound healing: Decreased mobility. Wound Assessment: 1. Left Dorsal Lateral Foot: Wound from fall at home (per family report), present on admission. Wound bed has 5% red tissue, 40% black slough, 45% yellow slough. No odor, small yellow drainage. Periwound intact. Wound measurement area consists of 3 smaller wounds that are now connected (was probably one large wound that is healing). Wound measures 12.5 cm x 3.4 cm x 0.6 cm. 2. Left Dorsal Foot, Medial to Site 1: Wound from fall at home (per family report), present on admission. Wound bed has 30% black slough, 70% yellow slough. No odor, scant yellow drainage. Periwound intact. Wound measures 1.3 cm x 1.7 cm. Recommend: Cleanse wounds with normal saline. Apply moisture barrier cream to periwounds. Apply Venelex to wound beds. Cover with nonadhesive foam dressings. Wrap with Mele wrap. Perform wound care daily, and as needed for dressing soiling or dislodgment. Offload wound site at all times. 3. Left lateral malleolus: Area of pink scar tissue, present on admission. Recommend: Cover site with moisture barrier cream, then foam dressing perform site care daily, and as needed for dressing soiling or dislodgment. Offload Malleolus at all times. Also recommend: Reposition patient every 2 hours with pillow support and off-load pressure areas with pillows for pressure re-distribution. Offload, elevate and float bilateral heels with one pillow lengthwise under each extremity at all times. Perform skin care and monitor skin integrity Q shift. Use moisture barrier cream on buttocks and other moisture susceptible areas QID and as needed for soiling. Place patient on a low air-loss mattress.
[2022-09-12] MEDS ORDERED: BALSAM PERU/CASTOR OIL 56.7 GM OINT...G. TP ONE (12:30)
--- NOTE | 2022-09-12 14:15 | NUR ---
WOUND CARE Wound care completed as ordered. Patient tolerated well.
--- NOTE | 2022-09-12 14:35 | NUR ---
[facility] COMMUNICATION Report given to ABDIFATAH Nelson.
--- NOTE | 2022-09-12 14:45 | NUR ---
[facility] COMMUNICATION Spoke to [facility] dispatch. Patient is placed on will call. ETA likely 9:00 PM (2099).
[2022-09-12 15:15] VITALS: BP_SYST 107
--- NOTE | 2022-09-12 16:00 | NUR ---
EJ REMOVED EJ removed. Catheter intact. Dressing placed. No active bleeding noted.
[2022-09-12] MEDS: EPOETIN ALFA 10,000 UNITS/ML VIAL SUBCUT SCH (18:19)
--- NOTE | 2022-09-12 19:30 | NUR ---
CLOSING NOTE Report given to ABDIFATAH Ramirez. Patient sitting in bed, awake and oriented x4. Call light within reach, safety precautions observed.
[2022-09-12 20:00] VITALS: BP_SYST 120
[2022-09-12] MEDS: QUEtiapine FUMARATE 25 MG TABLET PO SCH (21:01)
--- NOTE | 2022-09-12 21:18 | NUR ---
[facility] CALLED [facility] TO FOLLOW UP ON TRANSPORT . THEY SAID THAT NOTHING WAS SCHEDULED FOR [employer] DEALER OR WILL CALL.
--- NOTE | 2022-09-12 21:22 | NUR ---
[facility] SPOKE WITH REECE TABLE ASSEMBLER METAL WILL BE 0800
--- NOTE | 2022-09-12 23:35 | NUR ---
[facility] CALLED AND SAID THAT SHE WAS NOTIFIED THAT WE WERE UNABLE TO TRANSFER THE PT TONIGHT DUE TO TRANSPORT . PER THE "DON" KENZIESTEFANIA CORRALESMichelle THEY CANT TAKE THE PT TILL THURSDAY . ANGIE REQUESTED TO HAVE CREW BOSS HERE AT [facility] CALL HER THIS WEEKEND [phone] RN AND CHARGE NURSE NOTIFIED Addendum: 09/12/22 at 3067 by Araceli Carreon CNA THE "DON" TEE ANTONIMichelle IS EYAD
--- NOTE | 2022-09-12 23:38 | NUR ---
CALLED [facility] AND CANCELED TRANSPORT
[2022-09-13] VITALS: BP_SYST 114
[2022-09-13] MEDS: ACETAMINOPHEN 500 MG TABLET PO PRN (06:02)
[2022-09-13] MEDS: INSULIN REGULAR, HUMAN 100 UNITS/ML, 3 ML VIAL (humuLIN R) SUBCUT PRN ×2 (06:08→12:44)
--- NOTE | 2022-09-13 06:24 | NUR ---
PATIENT WAS NOT DC'D DUE TO TRANSPORTATION ISSUES, THIS NURSE NOTIFIED THAT PATIENT WOULD NOT BE DC UNTIL THURSDAY AT THE EARLIEST THERE IS NO ONE TO ADMIT HER AT THE RECEIVING FACILITY. PATIENT VSS, BS HAVE BEEN ELEVATED AND S/S GIVEN ORDERED. PATIENT C/O PAIN AND PRN TYLENOL WAS GIVEN AND HELPFUL. PATIENT REFUSED SCDS STATING THAT THEY WERE HURTING HER LEGS. PATIENT APPEARS TO BE IMPROVING AND RESTED MORE DURING THIS SHIFT THAN THE LAST 3 DAYS THIS NURSE HAS CARED FOR HER. PATIENT CURRENTLY IN BED RESTING, WAITING AND ASKING HOW LONG UNTIL BREAKFAST. ENDORSED TO THIS NURSE TO HAVE CASE MANAGEMENT CALL [facility] TO MAKE ARRANGEMENTS FOR PATIENT TO BE TRANSFERRED THURSDAY. PER PREVIOUS NOTE: ANGIE REQUESTED TO HAVE EMPLOYEE WELLNESS/FITNESS COORDINATOR HERE AT [facility] CALL HER THIS WEEKEND [phone]
[2022-09-13] MEDS: ATORVASTATIN 10 MG TABLET PO SCH (08:22)
[2022-09-13 08:43] VITALS: BP_SYST 113
[2022-09-13] MEDS ORDERED: BALSAM PERU/CASTOR OIL 56.7 GM OINT...G. TP SCH (09:00)
[2022-09-13] MEDS: LINEZOLID 300 ML IV SCH (09:00)
--- NOTE | 2022-09-13 09:21 | NUR ---
[facility] KAYY CALLED TO INFORM THAT PT CAN BE TRANSFERRED TODAY AFTER 1600.
--- NOTE | 2022-09-13 09:36 | NUR ---
CONFIRMED WITH [facility] FOR A TRADE MARK ATTORNEY TIME AT 1600 GOING TO [facility], RM 102A. SPOKE TO LEANNE OF [facility].
[2022-09-13 12:00] VITALS: BP_SYST 116
[2022-09-13] MEDS ORDERED: LINEZOLID 600 MG TABLET PO ONE (13:30)
--- NOTE | 2022-09-13 13:48 | NUR ---
DISPATCH OF [facility], LEANNE CALLED TO ADVISE THAT ZINC MINER BLASTING TIME IS BETWEEN 1430 TO 1500. ABDIFATAH STANLEY WAS NOTIFIED.
[2022-09-13 13:54] VITALS: BP_SYST 116
--- NOTE | 2022-09-13 14:10 | NUR ---
CALLED [facility] TO GIVE REPORT, SPOKE WITH CARMEN RODRIGUEZ STATING " I ALREADY GOT REPORT". PATIENT WAITING FOR AMBULATE PICKUP BETWEEN 1430-1500PM
--- NOTE | 2022-09-13 15:10 | NUR ---
D/C Patient Discharge to [facility] in stable condition, no signs of distress. Right AV shunt intact. Report given to facility by previous nurse. Discharge package and educational material and all belongings sent with patient. Patient waste picker [facility]
--- NOTE | 2022-09-13 15:38 | NUR ---
Initial Received patient awake in bed, A/O x2 follow simple command. Respiration even and unlabored, no signs of pain/SOB/distress. No IV access. All safety precaution secured, bed in low position and call light w/in reached.
[2022-09-13] MEDS ORDERED: LINEZOLID 600 MG TABLET PO SCH (21:00)
[2022-09-13] MEDS ORDERED: CARVEDILOL 6.25 MG TABLET (COREG) PO SCH (21:00)
--- NOTE | 2022-09-15 15:15 | NUR ---
PHYSICAL THERAPY CO-SIGN The Physical Therapy Progress Notes documented by Production Checker have been reviewed. Reviewed/Co-Signed by: Jose Pierce Documentation Done by:MIREYA WILKERSON Addendum: 09/15/22 at 1515 by Jose Pierce PT Amended: Links added.
== END 2022-09-13 15:10 | DRG 70 ==
LOC: SED 09:03 → STU 11:53
PROVIDERS: ADMIT Family Medicine; ATTEND Family Medicine
PROC: 5A1D70Z Performance of Urinary Filtration, Intermittent, Less than 6 Hours Per Day (ICD-10-PCS; principal; 2022-09-08)
PROC: 5A1D70Z Performance of Urinary Filtration, Intermittent, Less than 6 Hours Per Day (ICD-10-PCS; 2022-09-10)
PROC: 5A1D70Z Performance of Urinary Filtration, Intermittent, Less than 6 Hours Per Day (ICD-10-PCS; 2022-09-12)
DX: G93.41 Metabolic encephalopathy (principal); N18.6 End stage renal disease; I12.0 Hypertensive chronic kidney disease with stage 5 chronic kidney disease or end stage renal disease; E87.1 Hypo-osmolality and hyponatremia; N39.0 Urinary tract infection, site not specified; Z99.2 Dependence on renal dialysis; S09.93XA Unspecified injury of face, initial encounter; X58.XXXA Exposure to other specified factors, initial encounter; D63.1 Anemia in chronic kidney disease; E11.649 Type 2 diabetes mellitus with hypoglycemia without coma; E11.22 Type 2 diabetes mellitus with diabetic chronic kidney disease; Z20.822 Contact with and (suspected) exposure to COVID-19; I51.7 Cardiomegaly; Y93.89 Activity, other specified; Y92.89 Other specified places as the place of occurrence of the external cause; Y99.8 Other external cause status; Z91.81 History of falling; Z86.73 Personal history of transient ischemic attack (TIA), and cerebral infarction without residual deficits
CPT/HCPCS: 36415; 70450-TC; 71045; 73521; 76376; 80048; 80053; 80307; 81000; 82009; 82140; 82550; 82962; 83605; 83735; 83880; 84100; 84484; 85025; 85610-TC; 85730-TC; 86140; 87040; 87081; 87086; 93005; 96361; 96365; 96367; 96375; 97110-GP; 97112-GP; 97163-GP; 97530-GP; 99285; G0378; G0480; G0481; G0482; J0696; J0885; J1815; J2020; J2060